=== PATIENT | female | born 1960 | race Caucasian/White ===

== ENCOUNTER 2017-08-08 07:14 | Emergency (ER) | payer BC, MEDICAID ==
[~2017-08-08] VITALS: Ht 165.1 cm; Wt 65.9 kg
[~2017-08-08 07:14] MED LIST: ASPI-1265 PO; CYCL-1 PO; ESCI20TA29 PO; HYDR50TA3 PO; PHEN-824 PO; PLE50T PO; PRAS10TA6 PO; RES15C PO; ROSU20TA PO; VALS160T2 PO
[2017-08-08] MEDS ORDERED: BENZ-16 PO (09:47)
[2017-08-08] MEDS ORDERED: AZIT500T PO (09:47)
[2017-08-08 09:55] VITALS: BP 144/87
== END 2017-08-08 09:56 | disposition home or self-care (01) ==
LOC: ER 07:14
DX: J22 Unspecified acute lower respiratory infection (principal); J44.1 Chronic obstructive pulmonary disease with (acute) exacerbation; F17.200 Nicotine dependence, unspecified, uncomplicated; I10 Essential (primary) hypertension; E78.00 Pure hypercholesterolemia, unspecified; Z86.718 Personal history of other venous thrombosis and embolism; Z79.82 Long term (current) use of aspirin; Z79.899 Other long term (current) drug therapy
CPT/HCPCS: 71046; 99284

== ENCOUNTER 2018-02-25 08:46 | Emergency (ER) | payer BC ==
[~2018-02-25] VITALS: Ht 165.1 cm; Wt 65.0 kg
[2018-02-25 09:22] VITALS: BP 169/94
[2018-02-25] MEDS ORDERED: CYCL-1 PO (09:24)
== END 2018-02-25 10:12 | disposition home or self-care (01) ==
LOC: ER 08:46
DX: R07.89 Other chest pain (principal); E78.00 Pure hypercholesterolemia, unspecified; I10 Essential (primary) hypertension; J44.9 Chronic obstructive pulmonary disease, unspecified; F17.200 Nicotine dependence, unspecified, uncomplicated; Z86.718 Personal history of other venous thrombosis and embolism; Z98.61 Coronary angioplasty status; Z98.890 Other specified postprocedural states; Z79.82 Long term (current) use of aspirin; Z79.899 Other long term (current) drug therapy
CPT/HCPCS: 71046; 99284

== ENCOUNTER 2020-04-29 00:25 | Emergency (ER) | payer BC, MEDICAID ==
[~2020-04-29] VITALS: Ht 165.1 cm; Wt 56.8 kg
[~2020-04-29 00:25] MED LIST changes: -ROSU20TA PO; +ROSU20TA2 PO
[2020-04-29 01:02] LABS: BASOPHILS # (AUTO) 0.1 X10'3 (0-0.2); BASOPHILS % (AUTO) 0.8 % (0-1); EOSINOPHILS # (AUTO) 0.2 X10'3 (0-0.9); EOSINOPHILS % (AUTO) 1.8 % (0-6); HEMATOCRIT 43.6 % (35.0-45.0); HEMOGLOBIN 14.3 g/dl (12.0-16.0); LYMPHOCYTES # (AUTO) 2.7 X10'3 (1.1-4.8); LYMPHOCYTES % (AUTO) 29.4 % (21-51); MEAN CORPUSCULAR HEMOGLOBIN 30.9 PG (27.0-31.0); MEAN CORPUSCULAR HGB CONC 32.9 g/dL (33.0-36.5); MEAN CORPUSCULAR VOLUME 94.1 FL (78-98); MEAN PLATELET VOLUME 7.8 FL (7.4-10.4); MONOCYTES # (AUTO) 0.9 X10'3 (0-0.9); MONOCYTES % (AUTO) 10.2 % (2-12); NEUTROPHILS # (AUTO) 5.3 X10'3 (1.8-7.7); NEUTROPHILS % (AUTO) 57.8 % (42-75); PLATELET COUNT 403 X10'3 (140-440); RED BLOOD COUNT 4.63 X10'6 (4.20-5.60); RED CELL DISTRIBUTION WIDTH 13.7 % (11.5-14.5); WHITE BLOOD COUNT 9.1 X10'3 (4.5-11.0)
[2020-04-29 01:22] LABS: ALANINE AMINOTRANSFERASE 52 U/L (12-78); ALBUMIN 3.4 G/DL (3.4-5.0); ALBUMIN/GLOBULIN RATIO 0.8 (1.1-1.5); ALKALINE PHOSPHATASE 142 IU/L (46-116); ANION GAP 9 (8-16); ASPARTATE AMINO TRANSFERASE 62 U/L (10-37); BILIRUBIN,TOTAL 0.3 MG/DL (0.1-1.0); BLOOD UREA NITROGEN 27 MG/DL (7-18); BUN/CREATININE RATIO 20.6 (6.6-38.0); CALCIUM 8.7 MG/DL (8.5-10.1); CHLORIDE 107 MMOL/L (99-107); CREATININE 1.31 MG/DL (0.40-0.90); GLUCOSE 118 MG/DL (70-104); POTASSIUM 3.8 MMOL/L (3.5-5.1); SODIUM 143 MMOL/L (135-145); TOTAL CARBON DIOXIDE 26.9 MMOL/L (24-32); TOTAL PROTEIN 7.6 G/DL (6.4-8.2); eGFR 41 ML/MIN
[2020-04-29 01:36] VITALS: BP 168/95
--- NOTE | 2020-04-29 01:37 | NUR ---
PT GETTING RESTLESS BECAUSE DR HAS NOT BEEN IN YET. PT WAS REASSURED THAT MD WILL BE IN SHORTLY HE WAS IN WITH AN EMERGENCY TRANSFER PT.
[2020-04-29] MEDS ORDERED: normal saline 1000ML IV soln IVB ONE (02:20)
[2020-04-29] MEDS ORDERED: dexamethasone 4mg tablet PO ONE (02:25)
--- NOTE | 2020-04-29 02:37 | NUR ---
Pt refusing iv fluids.
[2020-04-29] MEDS ORDERED: DOXYCYCLINE 100MG CAPSULE PO STA (03:09)
[2020-04-29] MEDS ORDERED: DOXY-1 PO (03:10)
== END 2020-04-29 03:25 | disposition home or self-care (01) ==
LOC: ER 00:26
DX: J18.9 Pneumonia, unspecified organism (principal); E78.00 Pure hypercholesterolemia, unspecified; I10 Essential (primary) hypertension; F17.200 Nicotine dependence, unspecified, uncomplicated; J44.9 Chronic obstructive pulmonary disease, unspecified; Z86.718 Personal history of other venous thrombosis and embolism; Z98.61 Coronary angioplasty status; Z98.890 Other specified postprocedural states; Z79.82 Long term (current) use of aspirin; Z79.899 Other long term (current) drug therapy
CPT/HCPCS: 36415; 71046; 71250; 80053; 83605; 83880; 85025; 99284; 99285

== ENCOUNTER 2020-05-14 05:27 | Emergency (ER) | payer MEDICAID ==
[~2020-05-14] VITALS: Ht 165.1 cm; Wt 56.8 kg
[2020-05-14] MEDS ORDERED: ipratropium/albuterol 3ml nebule NEB ONE (05:45)
[2020-05-14 06:04] LABS: ABG BASE EXCESS -1.6 mmol/L (-2.0-2.0); ABG OXYGEN SATURATION 91.7 % (94-97); ABG PCO2 (T) 37.1 mmHg (32.0-45.0); ABG PO2 (T) 58.2 mmHg (75.0-100.0); ALLEN'S TEST POSITIVE; FCOHb 1.3 % (0.0-3.9); FLOW 3 L/min; FMetHb 0.3 % (0.0-1.5); FO2Hb 90.2 % (94-97); PATIENT TEMPERATURE 36.1; TOTAL HEMOGLOBIN 14.4 G/dl (12.0-16.0)
[2020-05-14 06:05] LABS: BASOPHILS # (AUTO) 0.1 X10'3 (0-0.2); BASOPHILS % (AUTO) 1.1 % (0-1); EOSINOPHILS # (AUTO) 0.2 X10'3 (0-0.9); EOSINOPHILS % (AUTO) 1.5 % (0-6); HEMATOCRIT 42.3 % (35.0-45.0); LYMPHOCYTES # (AUTO) 2.1 X10'3 (1.1-4.8); LYMPHOCYTES % (AUTO) 19.9 % (21-51); MEAN CORPUSCULAR HGB CONC 33.2 g/dL (33.0-36.5); MEAN CORPUSCULAR VOLUME 93.3 FL (78-98); MEAN PLATELET VOLUME 8.2 FL (7.4-10.4); MONOCYTES % (AUTO) 9.8 % (2-12); NEUTROPHILS # (AUTO) 7.2 X10'3 (1.8-7.7); NEUTROPHILS % (AUTO) 67.7 % (42-75); PLATELET COUNT 373 X10'3 (140-440); RED BLOOD COUNT 4.53 X10'6 (4.20-5.60); RED CELL DISTRIBUTION WIDTH 14.1 % (11.5-14.5); WHITE BLOOD COUNT 10.7 X10'3 (4.5-11.0)
[2020-05-14 06:13] LABS: ALANINE AMINOTRANSFERASE 54 U/L (12-78); ALBUMIN 3.2 G/DL (3.4-5.0); ALBUMIN/GLOBULIN RATIO 0.8 (1.1-1.5); ALKALINE PHOSPHATASE 135 IU/L (46-116); ANION GAP 10 (8-16); ASPARTATE AMINO TRANSFERASE 68 U/L (10-37); BILIRUBIN,TOTAL 0.4 MG/DL (0.1-1.0); BLOOD UREA NITROGEN 21 MG/DL (7-18); BUN/CREATININE RATIO 16.2 (6.6-38.0); CALCIUM 8.4 MG/DL (8.5-10.1); CHLORIDE 107 MMOL/L (99-107); GLUCOSE 126 MG/DL (70-104); POTASSIUM 3.7 MMOL/L (3.5-5.1); SODIUM 140 MMOL/L (135-145); TOTAL PROTEIN 7.3 G/DL (6.4-8.2); eGFR 42 ML/MIN
[2020-05-14] MEDS ORDERED: nitroGLYCERIN-Tridil 50MG/D5W 250 ML IV PRN ×2 (06:15→06:17)
[2020-05-14] MEDS ORDERED: furosemide 10 MG/1 ML 10ml inj IV ONE (06:35)
[2020-05-14] MEDS ORDERED: levoFLOXACIN-Levaquin 500mg/D5 100 ML IV ONE (06:35)
[2020-05-14 07:31] LABS: CLARITY,URINE CLEAR (Clear); COLOR,URINE YELLOW (Yellow); GLUCOSE, URINE NEGATIVE (Neg); KETONES,URINE NEGATIVE (Neg); LEUKOCYTE ESTERASE ,URINE MODERATE (Neg); NITRITES, URINE NEGATIVE (Neg); OCCULT BLOOD,URINE TRACE-INTACT (Neg); PROTEIN,URINE NEGATIVE (Neg); UROBILINOGEN,URINE 0.2 E.U/dL (0.2-1.0)
[2020-05-14 07:37] LABS: BACTERIA,URINE FEW /HPF (Neg); RBC,URINE 0-2 /HPF (0-2); UA COLLECTION TYPE CLN CATCH MIDSTREAM
[2020-05-14 07:38] LABS: MUCUS STRANDS FEW /LPF (Neg); SQUAMOUS EPITHELIAL CELL,UR NONE SEEN /LPF (FEW)
--- NOTE | 2020-05-14 08:04 | NUR ---
EF 40-45%,RIGHT HEART PRESSURE 50 [facility],DR. LEWIS AWARE.
--- NOTE | 2020-05-14 09:41 | NUR ---
Dr Ambriz aware of pt's bp and would like the nitro drip left where it is at for now. Dr Ambriz also wanted to trial the pt without O2.
--- NOTE | 2020-05-14 10:06 | NUR ---
Dr Curry at bedside.
--- NOTE | 2020-05-14 10:11 | NUR ---
Pt is refusing to be admitted to the hospital again. Dr Ambriz aware and will discharge pt AMA.
[2020-05-14] MEDS ORDERED: CARV3.122 PO (10:28)
[2020-05-14 10:43] VITALS: BP 154/107
--- NOTE | 2020-05-17 14:14 | NUR ---
Urine results back, needs to be on ABX. Ordered by Dr Palma. Unable to leave message on voice mail as mailbox is full. Letter sent.
== END 2020-05-14 10:48 | disposition left against medical advice (07) ==
LOC: ER 05:27
DX: J96.00 Acute respiratory failure, unspecified whether with hypoxia or hypercapnia (principal); J44.1 Chronic obstructive pulmonary disease with (acute) exacerbation; I16.1 Hypertensive emergency; I11.0 Hypertensive heart disease with heart failure; I50.9 Heart failure, unspecified; E78.00 Pure hypercholesterolemia, unspecified; Z86.718 Personal history of other venous thrombosis and embolism; Z98.61 Coronary angioplasty status; Z98.890 Other specified postprocedural states; Z79.82 Long term (current) use of aspirin; Z79.899 Other long term (current) drug therapy
CPT/HCPCS: 36415; 36600; 71045; 80053; 81001; 82803; 83605; 83880; 84145; 84484; 85018; 85025; 87040; 87077; 87088; 87186; 93005; 93306; 96365; 96368; 96375; 99291; J1940; J1956; 94760; J3490

== ENCOUNTER 2021-03-04 17:31 | Emergency (ER) | payer MEDICAID ==
[~2021-03-04] VITALS: Ht 165.1 cm; Wt 63.6 kg
[~2021-03-04 17:31] MED LIST changes: +CARV3.122 PO; -HYDR50TA3 PO; +HYDR50TA4 PO
[2021-03-04 17:42] VITALS: BP 204/108
[2021-03-04 18:27] LABS: BASOPHILS # (AUTO) 0.1 X10'3 (0-0.2); BASOPHILS % (AUTO) 1.2 % (0-1); EOSINOPHILS % (AUTO) 0.1 % (0-6); HEMATOCRIT 40.7 % (35.0-45.0); LYMPHOCYTES # (AUTO) 1.7 X10'3 (1.1-4.8); LYMPHOCYTES % (AUTO) 14.7 % (21-51); MEAN CORPUSCULAR HEMOGLOBIN 32.5 PG (27.0-31.0); MEAN CORPUSCULAR HGB CONC 34.5 g/dL (33.0-36.5); MEAN CORPUSCULAR VOLUME 94.2 FL (78-98); MEAN PLATELET VOLUME 8.5 FL (7.4-10.4); MONOCYTES % (AUTO) 8.7 % (2-12); NEUTROPHILS # (AUTO) 8.9 X10'3 (1.8-7.7); NEUTROPHILS % (AUTO) 75.3 % (42-75); PLATELET COUNT 366 X10'3 (140-440); RED BLOOD COUNT 4.32 X10'6 (4.20-5.60); RED CELL DISTRIBUTION WIDTH 14.6 % (11.5-14.5); WHITE BLOOD COUNT 11.8 X10'3 (4.5-11.0)
[2021-03-04 18:36] LABS: ALANINE AMINOTRANSFERASE 46 U/L (12-78); ALBUMIN 3.3 G/DL (3.4-5.0); ALBUMIN/GLOBULIN RATIO 0.8 (1.1-1.5); ALKALINE PHOSPHATASE 137 IU/L (46-116); ANION GAP 11 (8-16); ASPARTATE AMINO TRANSFERASE 32 U/L (10-37); BILIRUBIN,TOTAL 0.5 MG/DL (0.1-1.0); BLOOD UREA NITROGEN 15 MG/DL (7-18); BUN/CREATININE RATIO 11.9 (6.6-38.0); CALCIUM 8.5 MG/DL (8.5-10.1); CHLORIDE 110 MMOL/L (99-107); CREATININE 1.26 MG/DL (0.40-0.90); GLUCOSE 120 MG/DL (70-104); POTASSIUM 3.7 MMOL/L (3.5-5.1); SODIUM 146 MMOL/L (135-145); TOTAL CARBON DIOXIDE 25.5 MMOL/L (24-32); TOTAL PROTEIN 7.2 G/DL (6.4-8.2); eGFR 43 ML/MIN
[2021-03-04] MEDS: albuterol 2.5 MG/3 ML nebule NEB ONE (18:53)
[2021-03-04] MEDS: furosemide 20MG tablet PO ONE (19:17)
[2021-03-04] MEDS: predniSONE 20 mg tablet PO ONE (19:18)
[2021-03-04] MEDS ORDERED: DOXY100C76 PO (19:48)
[2021-03-04] MEDS ORDERED: ROBDML PO (19:48)
== END 2021-03-04 20:09 | disposition left against medical advice (07) ==
LOC: ER 17:32
DX: J18.9 Pneumonia, unspecified organism (principal); E78.00 Pure hypercholesterolemia, unspecified; I10 Essential (primary) hypertension; J44.9 Chronic obstructive pulmonary disease, unspecified; Z20.822 Contact with and (suspected) exposure to COVID-19
CPT/HCPCS: 71045; 80053; 83880; 84484; 85025; 85610; 87502; 87503; 87635; 93005; 94640; 99285; C9803; J7512; 94760

== ENCOUNTER 2021-05-27 09:26 | Emergency (ER) | payer MEDICAID ==
[~2021-05-27] VITALS: Ht 165.1 cm; Wt 68.0 kg
[2021-05-27 10:31] VITALS: BP 158/73
[2021-05-27 10:56] LABS: BASOPHILS % (AUTO) 0.1 % (0-1); EOSINOPHILS % (AUTO) 0.2 % (0-6); HEMATOCRIT 45.1 % (35.0-45.0); LYMPHOCYTES # (AUTO) 0.9 X10'3 (1.1-4.8); LYMPHOCYTES % (AUTO) 4.8 % (21-51); MEAN CORPUSCULAR HEMOGLOBIN 30.8 PG (27.0-31.0); MEAN CORPUSCULAR HGB CONC 33.3 g/dL (33.0-36.5); MEAN CORPUSCULAR VOLUME 92.5 FL (78-98); MEAN PLATELET VOLUME 8.5 FL (7.4-10.4); MONOCYTES # (AUTO) 1.8 X10'3 (0-0.9); MONOCYTES % (AUTO) 9.1 % (2-12); NEUTROPHILS # (AUTO) 16.6 X10'3 (1.8-7.7); NEUTROPHILS % (AUTO) 85.8 % (42-75); PLATELET COUNT 428 X10'3 (140-440); RED BLOOD COUNT 4.88 X10'6 (4.20-5.60); RED CELL DISTRIBUTION WIDTH 15.3 % (11.5-14.5); WHITE BLOOD COUNT 19.3 X10'3 (4.5-11.0)
[2021-05-27 11:03] LABS: APTT 30 SECONDS (22-32)
[2021-05-27] MEDS ORDERED: normal saline 1000ML IV soln IVB ONE (11:10)
[2021-05-27 11:15] LABS: ALANINE AMINOTRANSFERASE 21 U/L (12-78); ALBUMIN/GLOBULIN RATIO 0.6 (1.1-1.5); ALKALINE PHOSPHATASE 129 IU/L (46-116); ANION GAP 11 (8-16); ASPARTATE AMINO TRANSFERASE 25 U/L (10-37); BILIRUBIN,TOTAL 0.6 MG/DL (0.1-1.0); BLOOD UREA NITROGEN 29 MG/DL (7-18); BUN/CREATININE RATIO 17.9 (6.6-38.0); CALCIUM 9.1 MG/DL (8.5-10.1); CHLORIDE 100 MMOL/L (99-107); CREATININE 1.62 MG/DL (0.40-0.90); GLUCOSE 126 MG/DL (70-104); SODIUM 137 MMOL/L (135-145); TOTAL CARBON DIOXIDE 25.6 MMOL/L (24-32); eGFR 32 ML/MIN
[2021-05-27 11:20] LABS: POTASSIUM 2.7 MMOL/L (3.5-5.1)
--- NOTE | 2021-05-27 11:58 | NUR ---
Pt called RN to bedside. Arrived at bedside, pt stated to me that she was uwilling to wait any longer and that she "refused to just sit here". I explained that her labs has just resulted, and a CTA of her chest was ordered to be done. She then stated she "not interested" and began walking out of her room. Pt then ambulated out of dept with steady gait. Addendum: 05/27/21 at 1201 by RONNIE Note made by Shama Cao RN.
== END 2021-05-27 12:20 | disposition left against medical advice (07) ==
LOC: ER 09:27
DX: A41.9 Sepsis, unspecified organism (principal); Z20.822 Contact with and (suspected) exposure to COVID-19; I70.90 Unspecified atherosclerosis; R10.13 Epigastric pain; I77.1 Stricture of artery; E87.6 Hypokalemia; M25.512 Pain in left shoulder; E78.00 Pure hypercholesterolemia, unspecified; I10 Essential (primary) hypertension; J43.9 Emphysema, unspecified; F17.200 Nicotine dependence, unspecified, uncomplicated; Z87.440 Personal history of urinary (tract) infections; Z86.718 Personal history of other venous thrombosis and embolism; Z95.5 Presence of coronary angioplasty implant and graft; Z98.891 History of uterine scar from previous surgery; Z79.82 Long term (current) use of aspirin; Z79.899 Other long term (current) drug therapy
CPT/HCPCS: 36415; 80053; 84145; 84484; 85025; 85610; 85730; 87635; 93005; 93931; 99285; C9803

== ENCOUNTER 2021-06-06 10:37 | Emergency (ER) | payer MEDICAID ==
[~2021-06-06] VITALS: Ht 165.1 cm; Wt 63.6 kg
[2021-06-06 10:43] VITALS: BP 123/49
[2021-06-06] MEDS ORDERED: GUAI120L55 PO (12:12)
[2021-06-06] MEDS ORDERED: LEVO500T90 PO (12:12)
== END 2021-06-06 12:32 | disposition home or self-care (01) ==
LOC: ER 10:38
DX: J18.9 Pneumonia, unspecified organism (principal); R19.7 Diarrhea, unspecified; R10.9 Unspecified abdominal pain; E78.00 Pure hypercholesterolemia, unspecified; I10 Essential (primary) hypertension; J44.9 Chronic obstructive pulmonary disease, unspecified; J43.9 Emphysema, unspecified; Z86.718 Personal history of other venous thrombosis and embolism; Z95.5 Presence of coronary angioplasty implant and graft; Z98.891 History of uterine scar from previous surgery; Z79.82 Long term (current) use of aspirin; Z79.899 Other long term (current) drug therapy
CPT/HCPCS: 71045; 93005; 99283

== ENCOUNTER 2021-09-15 23:04 | Emergency (ER) | payer MEDICAID ==
[~2021-09-15] VITALS: Ht 165.1 cm; Wt 63.6 kg
[~2021-09-15 23:04] MED LIST changes: +GUAI120L55 PO
[2021-09-15] MEDS ORDERED: dexamethasone sod phosphate 10mg/ml inj IV STA (23:24)
[2021-09-16 00:02] LABS: BASOPHILS # (AUTO) 0.1 X10'3 (0-0.2); BASOPHILS % (AUTO) 0.6 % (0-1); EOSINOPHILS # (AUTO) 0.2 X10'3 (0-0.9); HEMATOCRIT 40.5 % (35.0-45.0); HEMOGLOBIN 13.6 g/dl (12.0-16.0); LYMPHOCYTES # (AUTO) 1.7 X10'3 (1.1-4.8); LYMPHOCYTES % (AUTO) 19.9 % (21-51); MEAN CORPUSCULAR HEMOGLOBIN 30.6 PG (27.0-31.0); MEAN CORPUSCULAR HGB CONC 33.6 g/dL (33.0-36.5); MEAN CORPUSCULAR VOLUME 90.9 FL (78-98); MEAN PLATELET VOLUME 7.9 FL (7.4-10.4); MONOCYTES # (AUTO) 0.7 X10'3 (0-0.9); MONOCYTES % (AUTO) 8.2 % (2-12); NEUTROPHILS % (AUTO) 69.3 % (42-75); PLATELET COUNT 353 X10'3 (140-440); RED BLOOD COUNT 4.45 X10'6 (4.20-5.60); RED CELL DISTRIBUTION WIDTH 16.5 % (11.5-14.5); WHITE BLOOD COUNT 8.6 X10'3 (4.5-11.0)
[2021-09-16 00:24] LABS: ALANINE AMINOTRANSFERASE 56 U/L (12-78); ALBUMIN 3.1 G/DL (3.4-5.0); ALBUMIN/GLOBULIN RATIO 0.8 (1.1-1.5); ALKALINE PHOSPHATASE 125 IU/L (46-116); ANION GAP 11 (8-16); ASPARTATE AMINO TRANSFERASE 67 U/L (10-37); BILIRUBIN,TOTAL 0.4 MG/DL (0.1-1.0); BLOOD UREA NITROGEN 19 MG/DL (7-18); BUN/CREATININE RATIO 18.3 (6.6-38.0); CALCIUM 8.5 MG/DL (8.5-10.1); CHLORIDE 108 MMOL/L (99-107); CREATININE 1.04 MG/DL (0.40-0.90); GLUCOSE 97 MG/DL (70-104); POTASSIUM 3.3 MMOL/L (3.5-5.1); SODIUM 143 MMOL/L (135-145); TOTAL CARBON DIOXIDE 24.1 MMOL/L (24-32); eGFR 54 ML/MIN
--- NOTE | 2021-09-16 01:50 | NUR ---
PT [employer]
[2021-09-16 01:54] LABS: ABG BASE EXCESS -3.5 mmol/L (-2.0-2.0); ABG HCO3 19.9 mmol/L (22.0-26.0); ABG OXYGEN SATURATION 93.3 % (94-97); ABG PCO2 (T) 31.3 mmHg (32.0-45.0); ABG PO2 (T) 66.4 mmHg (75.0-100.0); ALLEN'S TEST POSITIVE; FO2Hb 91.4 % (94-97); PATIENT TEMPERATURE 36.8; TOTAL HEMOGLOBIN 14.6 G/dl (12.0-16.0)
[2021-09-16] MEDS ORDERED: ALBU8HFA PO (02:04)
[2021-09-16] MEDS ORDERED: IPRA3AMP31 IH (02:12)
[2021-09-16 02:29] VITALS: BP 103/79
== END 2021-09-16 02:43 | disposition home or self-care (01) ==
LOC: ER 23:05
DX: J44.1 Chronic obstructive pulmonary disease with (acute) exacerbation (principal); I11.0 Hypertensive heart disease with heart failure; E78.00 Pure hypercholesterolemia, unspecified; Z79.899 Other long term (current) drug therapy
CPT/HCPCS: 36415; 36600; 71045; 80053; 82803; 83880; 84484; 85018; 85025; 93005; 96374; 99285; J1100; A4615

== ENCOUNTER 2022-03-30 06:29 | Emergency (ER) | payer MEDICAID ==
[~2022-03-30] VITALS: Ht 165.1 cm; Wt 63.6 kg
[~2022-03-30 06:29] MED LIST changes: +IPRA3AMP31 IH
[2022-03-30] MEDS ORDERED: acetaminophen 325mg tablet PO ONE (08:15)
[2022-03-30] MEDS ORDERED: proCHLORperazine 10 MG/2 ml inj IV ONE (08:15)
[2022-03-30] MEDS ORDERED: methylPREDNISolone sod succ 125mg/2ml vial IV ONE (08:15)
[2022-03-30] MEDS ORDERED: ketorolac trometh. 30mg/ml inj. IV ONE (08:15)
[2022-03-30] MEDS ORDERED: normal saline 1000ML IV soln IVB ONE (08:15)
[2022-03-30 08:49] LABS: BASOPHILS % (AUTO) 0.4 % (0-1); EOSINOPHILS # (AUTO) 0.1 X10'3 (0-0.9); EOSINOPHILS % (AUTO) 0.7 % (0-6); HEMOGLOBIN 13.7 g/dl (12.0-16.0); LYMPHOCYTES # (AUTO) 0.5 X10'3 (1.1-4.8); LYMPHOCYTES % (AUTO) 5.2 % (21-51); MEAN CORPUSCULAR HEMOGLOBIN 29.7 PG (27.0-31.0); MEAN CORPUSCULAR HGB CONC 32.6 g/dL (33.0-36.5); MEAN CORPUSCULAR VOLUME 91.1 FL (78-98); MEAN PLATELET VOLUME 7.9 FL (7.4-10.4); MONOCYTES # (AUTO) 0.8 X10'3 (0-0.9); MONOCYTES % (AUTO) 8.8 % (2-12); NEUTROPHILS # (AUTO) 7.4 X10'3 (1.8-7.7); NEUTROPHILS % (AUTO) 84.9 % (42-75); PLATELET COUNT 396 X10'3 (140-440); RED BLOOD COUNT 4.61 X10'6 (4.20-5.60); RED CELL DISTRIBUTION WIDTH 15.6 % (11.5-14.5); WHITE BLOOD COUNT 8.7 X10'3 (4.5-11.0)
[2022-03-30 09:06] LABS: ALANINE AMINOTRANSFERASE 71 U/L (12-78); ALBUMIN 3.1 G/DL (3.4-5.0); ALBUMIN/GLOBULIN RATIO 0.7 (1.1-1.5); ALKALINE PHOSPHATASE 235 IU/L (46-116); ANION GAP 9 (8-16); ASPARTATE AMINO TRANSFERASE 71 U/L (10-37); BILIRUBIN,TOTAL 0.4 MG/DL (0.1-1.0); BLOOD UREA NITROGEN 10 MG/DL (7-18); CALCIUM 8.5 MG/DL (8.5-10.1); CHLORIDE 102 MMOL/L (99-107); GLUCOSE 112 MG/DL (70-104); MAGNESIUM 1.7 MG/DL (1.5-2.4); POTASSIUM 3.8 MMOL/L (3.5-5.1); SODIUM 137 MMOL/L (135-145); TOTAL CARBON DIOXIDE 26.3 MMOL/L (24-32); TOTAL PROTEIN 7.4 G/DL (6.4-8.2); eGFR 56 ML/MIN
[2022-03-30] MEDS ORDERED: hydrALAZINE 20mg/ml inj. IV ONE (09:50)
[2022-03-30 10:25] VITALS: BP 176/70
--- NOTE | 2022-03-30 10:27 | NUR ---
BP 209/101. Per Dr. Palma, RN to hold IVF (RN held) and administer 20 mg IV hydralazine. RN administered. Upon reassessment, BP 176/70.
[2022-03-30] MEDS ORDERED: NIRM1TAB PO (10:38)
== END 2022-03-30 11:51 | disposition home or self-care (01) ==
LOC: ER 06:30
DX: U07.1 COVID-19 (principal); I11.0 Hypertensive heart disease with heart failure; I50.9 Heart failure, unspecified; E78.00 Pure hypercholesterolemia, unspecified; J44.9 Chronic obstructive pulmonary disease, unspecified; G89.29 Other chronic pain
CPT/HCPCS: 36415; 71045; 80053; 83605; 83735; 83880; 84145; 84484; 85025; 87040; 87635; 93005; 96361; 96374; 96375; 99285; C9803; J0360; J0780; J1885; J2930; J7030

== ENCOUNTER 2023-07-13 10:02 | Emergency (ER) | payer MEDICAID ==
[~2023-07-13] VITALS: Ht 165.1 cm; Wt 68.5 kg
[~2023-07-13 10:02] MED LIST changes: +NIRM1TAB PO
[2023-07-13 10:08] VITALS: TEMP 98.1
[2023-07-13 10:30] LABS: BILIRUBIN,URINE NEGATIVE (Neg); CLARITY,URINE CLEAR (Clear); COLOR,URINE YELLOW (Yellow); GLUCOSE, URINE NEGATIVE (Neg); KETONES,URINE NEGATIVE (Neg); LEUKOCYTE ESTERASE ,URINE MODERATE (Neg); NITRITES, URINE NEGATIVE (Neg); OCCULT BLOOD,URINE NEGATIVE (Neg); PROTEIN,URINE NEGATIVE (Neg)
[2023-07-13 10:35] LABS: UA COLLECTION TYPE CLN CATCH MIDSTREAM
[2023-07-13 10:36] LABS: BACTERIA,URINE FEW /HPF (Neg); MUCUS STRANDS FEW /LPF (Neg); RBC,URINE NONE SEEN /HPF (0-2); SQUAMOUS EPITHELIAL CELL,UR MODERATE /LPF (FEW); WBC,URINE 20-30 /HPF (0-4)
[2023-07-13 10:47] VITALS: BP 146/88; PULSE 77; RESP 14; O2SAT 96
[2023-07-13] MEDS ORDERED: CEPH-585 PO (10:54)
== END 2023-07-13 11:11 | disposition home or self-care (01) ==
LOC: ER 10:03
DX: N39.0 Urinary tract infection, site not specified (principal); I11.0 Hypertensive heart disease with heart failure; I50.9 Heart failure, unspecified; E78.00 Pure hypercholesterolemia, unspecified; J44.9 Chronic obstructive pulmonary disease, unspecified; Z86.718 Personal history of other venous thrombosis and embolism; Z98.890 Other specified postprocedural states; Z79.82 Long term (current) use of aspirin; Z79.2 Long term (current) use of antibiotics; Z79.899 Other long term (current) drug therapy
CPT/HCPCS: 81001; 87088; 99283